=== PATIENT | female | born 1945 | race Caucasian/White ===

== ENCOUNTER 2016-08-21 08:08 | Inpatient (IN) ==
--- NOTE | 2016-08-21 08:27 | Emergency Department Note ---
Disposition Clinical Impression: Hypoxia, Near syncope Disposition: Admitted As Inpatient Condition: Good Referrals: NO,PCP [Non-Partnered Physician] - Forms: ED Satisfaction Letter Time of Disposition: 11:12 Dizziness HPI - General Chief Complaint: ED Dizziness Stated Complaint: Dizziness,QI Time Seen by Provider: 08/21/16 08:16 Source: patient, family Mode of arrival: ambulatory Limitations: no limitations Nursing Notes Reviewed: Yes Vital Signs Reviewed: Yes - History of Present Illness HPI Narrative: Patient presents to the ED with the chief complaint of dizziness. Patient is unsure when these symptoms started happening. However, she states that when she stands up or sits up from sitting quickly that she gets dizzy and feels like she is going to pass out. She does not have these symptoms at rest. He denies any headache, changes in vision or chest pain. She states that she gets short of breath at times but it is not associated with the dizziness. Does seem to have some exertional shortness of breath. Denies any other complaints at this time. States that she is healthy and has no medical problems but does have a history of hypertension, diabetes and heart disease. She is unsure if she is on any anticoagulation or not. at bedside and is unable to provide any more history either. She is not able to elaborate on what she is feeling, but she does state that it does not feel like the room is spinning and that she just feels very lightheaded. - Related Data Home Medications Medication Instructions Recorded Confirmed Cholecalciferol (Vitamin D3) 2,000 unit PO 03/23/15 03/09/16 [Vitamin D] Metoprolol [Lopressor] 25 mg PO DAILY 03/23/15 07/13/16 Aspirin [Adult Low Dose Aspirin EC] 81 mg PO DAILY 04/23/15 07/13/16 [place]-3/Dha/Epa/Fish Oil [[place] 3 1 each PO DAILY 01/07/16 07/13/16 500 Softgel] Diclofenac Sodium [Voltaren] 100 gm TP DAILY 07/13/16 07/13/16 Previous Rx's Medication Instructions Recorded Sulfamethoxazole/Trimeth DS 1 each PO BID #20 tablet 08/16/16 [Bactrim DS] cephALEXin [Keflex] 500 mg PO QID #28 capsule 08/18/16 Allergies Allergy/AdvReac Type Severity Reaction Status Date / Time No Known Allergies Allergy Verified 08/17/16 22:25 Constitutional: Denies: fever Eyes: Denies: vision change Cardiovascular: Denies: chest pain Respiratory: Reports: dyspnea Musculoskeletal: Denies: back pain Neurological: Reports: abnormal gait (at times) Past Medical History - Past Medical History Attestation: Yes The following information was validated with the patient. Source: old records reviewed Medical history: Reports: coronary artery disease, hyperlipidemia, hypertension , myocardial infarction, other Surgical history: Reports: non-contributory Psychiatric history: Reports: no psych history - Social History Smoking Status: Current every day smoker Smokeless Tobacco Status: No Alcohol use: Reports: none Drug use: Reports: none Physical Exam - General Limitations: no limitations General appearance: alert, in no apparent distress - Head Head exam: atraumatic, normocephalic, normal inspection - Eye Eye exam: Present: normal appearance, PERRL, EOMI - ENT ENT exam: normal exam, normal oropharynx, mucous membranes moist - Neck Neck exam: Present: normal inspection, full ROM, trachea midline - Chest Chest inspection: Present: normal inspection, symmetric chest wall rise - Respiratory Respiratory exam: Present: normal lung sounds bilaterally - Cardiovascular Cardiovascular exam: Present: regular rate, normal rhythm, normal heart sounds - Abdominal Exam Abdominal exam: Present: soft, Non-Tender. Absent: tenderness, distention, guarding, rebound, rigidity - Extremities Exam Extremities exam: Present: normal inspection, full ROM. Absent: tenderness, pedal edema - Neurological Exam Neurological exam: Present: alert, oriented X3, CN II-XII intact, normal gait - Psychiatric Psychiatric exam: Present: flat affect - Skin Skin exam: Present: warm, dry, intact, normal color Course Course Narrative: 71-year-old female presenting with dizziness and presyncopal type feeling when standing up or sitting up from lying down. No complaints of chest pain. Some intermittent complaints of shortness of breath. Overall, the patient is a very poor historian as is her family member present. We will check labs, EKG, chest x-ray. Neurological exam is nonfocal. Further disposition pending workup. However, patient likely may be able to go home. - Reevaluation(s) Reevaluation #1: CTA is negative. Patient 91%, resting on room air with any exertion drops below 90%. We will admit for hypoxia and near-syncope. Vital Signs Temperature 98.0 F 08/21/16 08:10 Pulse Rate 62 08/21/16 08:10 Respiratory Rate 17 08/21/16 08:10 Blood Pressure 162/67 08/21/16 08:10 O2 Sat by Pulse Oximetry 96 08/21/16 08:10 Temperature 98.0 F 08/21/16 08:10 Pulse Rate 64 08/21/16 09:06 Respiratory Rate 18 08/21/16 09:06 Blood Pressure 164/83 08/21/16 09:06 O2 Sat by Pulse Oximetry 91 08/21/16 09:06 Oxygen Delivery Oxygen Delivery Room Air Dizziness - Medical Records Medical records reviewed: Yes I reviewed the patient's medical records. - Lab Data Lab results reviewed: Yes I reviewed the patient's lab results. Result diagrams: 08/21/16 08:42 08/21/16 08:42 Lab Results 08/21/16 08/21/16 08/21/16 Range/Units 08:42 08:42 08:42 WBC 4.2 L (4.3-11.1) K/mcL RBC 4.61 (3.82-4.97) M/mcL Hgb 11.9 (11.5-15.4) g/dL Hct 37.6 (35.3-44.9) % MCV 81.6 L (83.0-100.0) fL MCH 25.8 L (28.0-33.3) pg MCHC 31.6 (31.6-35.5) g/dL RDW 14.6 H (11.5-14.5) % Plt Count 144 (140-400) K/mcL MPV 10.0 (9.4-12.4) fL Immature Gran % 0.2 (0-4) % Seg Neutrophils % 63.0 % Lymphocytes % 19.5 % Monocytes % 14.5 % Eosinophils % 2.6 % Basophils % 0.2 % Neutrophils # 2.7 (1.6-8.9) K/mcL Lymphocytes # 0.8 (0.6-4.6) K/mcL Monocytes # 0.6 (0.0-1.3) K/mcL Eosinophils # 0.1 (0.0-0.6) K/mcL Basophils # 0.0 (0.0-0.2) K/mcL Sodium 135 L (136-145) mEq/L Potassium 4.4 (3.5-4.5) mEq/L Chloride 103 (98-109) mEq/L Carbon Dioxide 24 (19-29) mEq/L BUN 25 H (7-20) mg/dL Creatinine 1.49 H (0.57-1.11) mg/dL Est GFR ( Amer) 42 L (> 60) Est GFR (Non-Af Amer) 34 L (> 60) BUN/Creatinine Ratio 17 (6-26) Glucose 116 H (70-99) mg/dL Calculated Osmolality 285 (280-300) Calcium 9.2 (8.6-10.8) mg/dL Troponin I 0.01 (0-0.03) ng/mL Urine Color (Yellow) Urine Clarity (Clear) Urine pH (5.0-8.0) pH Units Ur Specific [place] (1.010-1.025) Urine Protein (Neg-Trace) mg/dL Urine Glucose (UA) (Normal) mg/dL Urine Ketones (Negative) mg/dL Urine Blood (Negative) Urine Nitrite (Negative) Urine Bilirubin (Negative) Urine Urobilinogen (Normal) mg/dL Ur Leukocyte Esterase (Negative) Urine Microscopic RBC (0-3) per hpf Urine Microscopic WBC (0-3) per hpf Ur Squamous Epith Cells (None-Few) per lpf Urine Bacteria (None-Few) per hpf Hyaline Casts (None-Few) per lpf Ur Culture Indicated? (NO) 08/21/16 Range/Units 09:15 WBC (4.3-11.1) K/mcL RBC (3.82-4.97) M/mcL Hgb (11.5-15.4) g/dL Hct (35.3-44.9) % MCV (83.0-100.0) fL MCH (28.0-33.3) pg MCHC (31.6-35.5) g/dL RDW (11.5-14.5) % Plt Count (140-400) K/mcL MPV (9.4-12.4) fL Immature Gran % (0-4) % Seg Neutrophils % % Lymphocytes % % Monocytes % % Eosinophils % % Basophils % % Neutrophils # (1.6-8.9) K/mcL Lymphocytes # (0.6-4.6) K/mcL Monocytes # (0.0-1.3) K/mcL Eosinophils # (0.0-0.6) K/mcL Basophils # (0.0-0.2) K/mcL Sodium (136-145) mEq/L Potassium (3.5-4.5) mEq/L Chloride (98-109) mEq/L Carbon Dioxide (19-29) mEq/L BUN (7-20) mg/dL Creatinine (0.57-1.11) mg/dL Est GFR ( Amer) (> 60) Est GFR (Non-Af Amer) (> 60) BUN/Creatinine Ratio (6-26) Glucose (70-99) mg/dL Calculated Osmolality (280-300) Calcium (8.6-10.8) mg/dL Troponin I (0-0.03) ng/mL Urine Color Yellow (Yellow) Urine Clarity Cloudy A (Clear) Urine pH 6.5 (5.0-8.0) pH Units Ur Specific [place] 1.016 (1.010-1.025) Urine Protein Negative (Neg-Trace) mg/dL Urine Glucose (UA) Normal (Normal) mg/dL Urine Ketones Negative (Negative) mg/dL Urine Blood Trace H (Negative) Urine Nitrite Negative (Negative) Urine Bilirubin Negative (Negative) Urine Urobilinogen Normal (Normal) mg/dL Ur Leukocyte Esterase Negative (Negative) Urine Microscopic RBC 0-3 (0-3) per hpf Urine Microscopic WBC 0-3 (0-3) per hpf Ur Squamous Epith Cells Many H (None-Few) per lpf Urine Bacteria None Seen (None-Few) per hpf Hyaline Casts None Seen (None-Few) per lpf Ur Culture Indicated? NO (NO) - Radiology Data Radiology results reviewed: Yes I reviewed the patient's radiology results. - EKG Data EKG attestation: Yes I reviewed and interpreted this EKG. EKG results narrative: Sinus rhythm, rate 63, DC interval 225, first-degree AV block, QRS 91, QTc 395, left axis deviation, no acute changes from previous on 08/16/2016 [facility] - [facility] Situation: Demographics, MOA Background: Presenting Complaint, Relevant PMH, Meds, & Allergies Assessment: Vital Signs, Course and respsone to treatment, Exam Concerns, Patient/Family Expectation, Pertinant Lab Results, Outstanding Labs Recommendation: Recommendation based on pending studies, treatments, or consults Manish Report Given to: Dr. Amor Hammond Repor Time: 11:13
--- NOTE | 2016-08-21 08:47 | Emergency Department Note ---
Disposition Clinical Impression: Hypoxia, Near syncope Disposition: Admitted As Inpatient Condition: Good General Adult HPI - General Chief complaint: ED Dizziness Stated complaint: Dizziness,QI Time Seen by Provider: 08/21/16 08:16 Source: patient, family Mode of arrival: ambulatory Limitations: no limitations - History of Present Illness Pain Scale: 0 - Related Data Home Medications Medication Instructions Recorded Confirmed Cholecalciferol (Vitamin D3) 2,000 unit PO 03/23/15 03/09/16 [Vitamin D] Metoprolol [Lopressor] 25 mg PO DAILY 03/23/15 07/13/16 Aspirin [Adult Low Dose Aspirin EC] 81 mg PO DAILY 04/23/15 07/13/16 [place]-3/Dha/Epa/Fish Oil [[place] 3 1 each PO DAILY 01/07/16 07/13/16 500 Softgel] Diclofenac Sodium [Voltaren] 100 gm TP DAILY 07/13/16 07/13/16 Previous Rx's Medication Instructions Recorded Sulfamethoxazole/Trimeth DS 1 each PO BID #20 tablet 08/16/16 [Bactrim DS] cephALEXin [Keflex] 500 mg PO QID #28 capsule 08/18/16 Allergies Allergy/AdvReac Type Severity Reaction Status Date / Time No Known Allergies Allergy Verified 08/17/16 22:25 Constitutional: Denies: fever Eyes: Denies: vision change Cardiovascular: Denies: chest pain Respiratory: Reports: dyspnea Musculoskeletal: Denies: back pain Neurological: Reports: abnormal gait (at times) Past Medical History - Past Medical History Medical history: Reports: coronary artery disease, hyperlipidemia, hypertension , myocardial infarction, other Surgical history: Reports: non-contributory Psychiatric history: Reports: no psych history - Social History Smoking Status: Current every day smoker Smokeless Tobacco Status: No Alcohol use: Reports: none Drug use: Reports: none Physical Exam - General Limitations: no limitations General appearance: alert, in no apparent distress Course - Reevaluation(s) Reevaluation #1: I saw the patient with the resident, Dr. Kumar. Patient presents with complaint of lightheadedness. She says when she gets up she feels like she did not faint. She says her legs get weak and she starts to feel fuzzyheaded. Her has to help her get back to a chair. She denies a sensation of spinning or drunkenness or being off balance. She denies getting the symptoms while she is supine. She sometimes gets it when she sits up. Frequently gets it when she stands up although not every single time. One time she felt a little short of breath with it but otherwise has had no other symptoms with it. Recently was seen here for Eli[place]on the left leg at which time she had a Doppler that was negative. Feels like that illness is getting better. Examination is unremarkable with regards to the chief complaint. We will do a workup on the patient. Disposition will be based on diagnostic results and reevaluation. Time: 08:46 Vital Signs Temperature 98.0 F 08/21/16 08:10 Pulse Rate 62 08/21/16 08:10 Respiratory Rate 17 08/21/16 08:10 Blood Pressure 162/67 08/21/16 08:10 O2 Sat by Pulse Oximetry 96 08/21/16 08:10 Temperature 98.0 F 08/21/16 08:10 Pulse Rate 56 08/21/16 11:25 Respiratory Rate 20 08/21/16 11:25 Blood Pressure 164/83 08/21/16 09:06 O2 Sat by Pulse Oximetry 97 08/21/16 11:25 Oxygen Delivery Oxygen Delivery Nasal Cannula Medical Decision Making - Lab Data Result diagrams: 08/21/16 08:42 08/21/16 08:42 Lab Results 08/21/16 08/21/16 08/21/16 Range/Units 08:42 08:42 08:42 WBC 4.2 L (4.3-11.1) K/mcL RBC 4.61 (3.82-4.97) M/mcL Hgb 11.9 (11.5-15.4) g/dL Hct 37.6 (35.3-44.9) % MCV 81.6 L (83.0-100.0) fL MCH 25.8 L (28.0-33.3) pg MCHC 31.6 (31.6-35.5) g/dL RDW 14.6 H (11.5-14.5) % Plt Count 144 (140-400) K/mcL MPV 10.0 (9.4-12.4) fL Immature Gran % 0.2 (0-4) % Seg Neutrophils % 63.0 % Lymphocytes % 19.5 % Monocytes % 14.5 % Eosinophils % 2.6 % Basophils % 0.2 % Neutrophils # 2.7 (1.6-8.9) K/mcL Lymphocytes # 0.8 (0.6-4.6) K/mcL Monocytes # 0.6 (0.0-1.3) K/mcL Eosinophils # 0.1 (0.0-0.6) K/mcL Basophils # 0.0 (0.0-0.2) K/mcL Sodium 135 L (136-145) mEq/L Potassium 4.4 (3.5-4.5) mEq/L Chloride 103 (98-109) mEq/L Carbon Dioxide 24 (19-29) mEq/L BUN 25 H (7-20) mg/dL Creatinine 1.49 H (0.57-1.11) mg/dL Est GFR ( Amer) 42 L (> 60) Est GFR (Non-Af Amer) 34 L (> 60) BUN/Creatinine Ratio 17 (6-26) Glucose 116 H (70-99) mg/dL Calculated Osmolality 285 (280-300) Calcium 9.2 (8.6-10.8) mg/dL Troponin I 0.01 (0-0.03) ng/mL Urine Color (Yellow) Urine Clarity (Clear) Urine pH (5.0-8.0) pH Units Ur Specific [place] (1.010-1.025) Urine Protein (Neg-Trace) mg/dL Urine Glucose (UA) (Normal) mg/dL Urine Ketones (Negative) mg/dL Urine Blood (Negative) Urine Nitrite (Negative) Urine Bilirubin (Negative) Urine Urobilinogen (Normal) mg/dL Ur Leukocyte Esterase (Negative) Urine Microscopic RBC (0-3) per hpf Urine Microscopic WBC (0-3) per hpf Ur Squamous Epith Cells (None-Few) per lpf Urine Bacteria (None-Few) per hpf Hyaline Casts (None-Few) per lpf Ur Culture Indicated? (NO) 08/21/16 Range/Units 09:15 WBC (4.3-11.1) K/mcL RBC (3.82-4.97) M/mcL Hgb (11.5-15.4) g/dL Hct (35.3-44.9) % MCV (83.0-100.0) fL MCH (28.0-33.3) pg MCHC (31.6-35.5) g/dL RDW (11.5-14.5) % Plt Count (140-400) K/mcL MPV (9.4-12.4) fL Immature Gran % (0-4) % Seg Neutrophils % % Lymphocytes % % Monocytes % % Eosinophils % % Basophils % % Neutrophils # (1.6-8.9) K/mcL Lymphocytes # (0.6-4.6) K/mcL Monocytes # (0.0-1.3) K/mcL Eosinophils # (0.0-0.6) K/mcL Basophils # (0.0-0.2) K/mcL Sodium (136-145) mEq/L Potassium (3.5-4.5) mEq/L Chloride (98-109) mEq/L Carbon Dioxide (19-29) mEq/L BUN (7-20) mg/dL Creatinine (0.57-1.11) mg/dL Est GFR ( Amer) (> 60) Est GFR (Non-Af Amer) (> 60) BUN/Creatinine Ratio (6-26) Glucose (70-99) mg/dL Calculated Osmolality (280-300) Calcium (8.6-10.8) mg/dL Troponin I (0-0.03) ng/mL Urine Color Yellow (Yellow) Urine Clarity Cloudy A (Clear) Urine pH 6.5 (5.0-8.0) pH Units Ur Specific [place] 1.016 (1.010-1.025) Urine Protein Negative (Neg-Trace) mg/dL Urine Glucose (UA) Normal (Normal) mg/dL Urine Ketones Negative (Negative) mg/dL Urine Blood Trace H (Negative) Urine Nitrite Negative (Negative) Urine Bilirubin Negative (Negative) Urine Urobilinogen Normal (Normal) mg/dL Ur Leukocyte Esterase Negative (Negative) Urine Microscopic RBC 0-3 (0-3) per hpf Urine Microscopic WBC 0-3 (0-3) per hpf Ur Squamous Epith Cells Many H (None-Few) per lpf Urine Bacteria None Seen (None-Few) per hpf Hyaline Casts None Seen (None-Few) per lpf Ur Culture Indicated? NO (NO) Attestation Statement - Attestation Attestation: I, Dr. Mckeon, examined this patient is to face and my medical decision- making was reviewed with Dr. Kumar, Resident Physician. I agree with the documented findings, disposition and treatment plan as described except to the extent set forth below. Please see my progress notes for details.
[2016-08-21] MEDS: 0.9 % Sodium Chloride 1,000 ML IVC SCH ×2 (08:48→21:11)
[2016-08-21 08:52] LABS: Basophils % 0.2 %; Eosinophils # 0.1 K/mcL (0.0-0.6); Eosinophils % 2.6 %; Hematocrit 37.6 % (35.3-44.9); Hemoglobin 11.9 g/dL (11.5-15.4); Immature Granulocytes % 0.2 % (0-4); Lymphocytes # 0.8 K/mcL (0.6-4.6); Lymphocytes % 19.5 %; Mean Corpuscular HGB Conc 31.6 g/dL (31.6-35.5); Mean Corpuscular Hemoglobin 25.8 pg (28.0-33.3); Mean Corpuscular Volume 81.6 fL (83.0-100.0); Monocytes # 0.6 K/mcL (0.0-1.3); Monocytes % 14.5 %; Neutrophils # 2.7 K/mcL (1.6-8.9); Platelet Count 144 K/mcL (140-400); Red Blood Count 4.61 M/mcL (3.82-4.97); Red Cell Distribution Width 14.6 % (11.5-14.5)
[2016-08-21 09:03] LABS: Calcium 9.2 mg/dL (8.6-10.8); Potassium 4.4 mEq/L (3.5-4.5)
[2016-08-21] MEDS ORDERED: 0.9 % Sodium Chloride 1,000 ML IVC ONE (09:08)
[2016-08-21 09:25] LABS: Bilirubin,Urine Negative (Negative); Blood,Urine Trace (Negative); Clarity,Urine Cloudy (Clear); Color,Urine Yellow (Yellow); Glucose,Urine (UA) Normal (Normal); Ketones,Urine Negative (Negative); Leukocyte Esterase,Urine Negative (Negative); Nitrite,Urine Negative (Negative); PH,Urine 6.5 pH Units (5.0-8.0); Protein,Urine Negative (Neg-Trace); Specific Gravity,Urine 1.016 (1.010-1.025); Urobilinogen,Urine Normal (Normal)
[2016-08-21 09:27] LABS: Bacteria,Urine None Seen per hpf (None-Few); Hyaline Casts,Urine None Seen per lpf (None-Few); RBC,Urine 0-3 per hpf (0-3); Squamous Epithelial Cell,Urine Many per lpf (None-Few); WBC,Urine 0-3 per hpf (0-3)
[2016-08-21] MEDS ORDERED: Naloxone 0.4 MG/ML INJ IVP PRN (11:33)
[2016-08-21] MEDS ORDERED: *HR* Morphine 2 MG/ML SYRINGE IVP PRN (11:33)
[2016-08-21] MEDS ORDERED: Acetaminophen 325 MG TABLET PO PRN (11:33)
[2016-08-21] MEDS ORDERED: Ondansetron 4 MG/2 ML VIAL IVP PRN (11:33)
[2016-08-21] MEDS ORDERED: 0.9 % Sodium Chloride 1,000 ML IVC SCH (11:45)
[2016-08-21 12:09] LABS: Magnesium 1.8 mg/dL (1.6-2.6)
[2016-08-21] MEDS: Aspirin Enteric Coated 81 MG Tablet PO SCH (13:03)
[2016-08-21] MEDS: Ipratropium/Albuterol Neb 3 ML IH SCH ×3 (13:08→22:49)
[2016-08-21 13:14] LABS: INR 1.1; Prothrombin Time 11.6 Seconds (9.4-12.1)
--- NOTE | 2016-08-21 14:03 | Internal Med History&Physical ---
Date of Encounter: 08/21/16 Time of Encounter: 13:45 Assessment and Plan (1) Near syncope Current visit: Yes Status: Acute Dizziness and lightheadedness with near-syncope - possibly orthostatic hypotension or arrhythmia or vertigo and due to a acute kidney injury and dehydration Continue aspirin, statin, IV fluids Empiric IV Rocephin for cellulitis of left lower extremity EKG - sinus rhythm with no acute ST-T changes CT angios of chest - negative for PE and no pulmonary abnormality Echocardiogram - pending Orthostatic vitals - pending Carotid Doppler - pending Troponin - 0.01, we will trend Labs in a.m. (2) Hypoxia Current visit: Yes Status: Acute Transient hypoxia - unclear etiology - now improved Continue 2 L oxygen via nasal cannula DuoNeb breathing treatment every [address] angios of chest - negative for PE and no other acute cardiopulmonary process Troponin - 0.01 EKG - sinus rhythm with no acute ST-T changes ABG pending (3) Acute kidney injury Current visit: Yes Status: Acute Acute kidney injury, creatinine greater than baseline Probably due to poor by mouth intake, dehydration Continue fluids Labs in a.m. (4) Cellulitis of left lower extremity Current visit: No Status: Acute Cellulitis of left lower extremity - unknown duration Has been on Keflex and Bactrim - unknown duration Empiric IV Rocephin Recent venous Dopplers - negative for DVT (5) Hyperlipidemia Current visit: Yes Status: Chronic Patient started on simvastatin Qualifiers: Hyperlipidemia type: unspecified Qualified Code(s): E78.5 - Hyperlipidemia , unspecified (6) Hypertension Current visit: Yes Status: Chronic Essential hypertension, controlled, continue home medication, monitor Qualifiers: Hypertension type: essential hypertension Qualified Code(s): I10 - Essential (primary) hypertension (7) Morbid obesity with BMI of 40.0-44.9, adult Current visit: Yes Status: Chronic Morbid obesity with BMI greater than 40 with physical deconditioning Encouraged weight loss Physical therapy evaluation (8) DVT prophylaxis Current visit: Yes Status: Acute Continue heparin subcutaneous Internal Medicine - H&P: HPI Chief complaint: Dizziness, generalized weakness Admitted From: Emergency Dept History of present illness: Ms. Smith is a 71 year old female with past medical history hypertension, hyperlipidemia and mild coronary artery disease. She is not a good historian. No family members at bedside right now. Patient presents to the ED with complaints of dizziness and generalized weakness. Patient states symptoms started about 2-3 days ago. Dizziness is worse when she stands up and tries to walk. Patient states she feels short of breath at times but this quickly resolves. She denies chest pain. Denies palpitations, denies abdominal pain, and denies vomiting or diarrhea or fever. Patient's symptoms are vague. She states she feels better at present. No other associated symptoms. Initial evaluation in the ED revealed hypoxia with a O2 sat of 91% on room air which further dropped to 90% on exertion. Patient is being admitted for hypoxia and generalized weakness. Patient states she is being treated with 2 different antibiotics for left lower leg cellulitis by her primary care physician. Patient is not sure as to when the cellulitis started and is not sure as to how long she has been on antibiotics. Patient will be on IV Rocephin during her stay in the hospital. Orthostatic vitals and echocardiogram are pending. Carotid Doppler results are pending. Initial EKG in the ER shows sinus rhythm with left axis deviation with no acute ST-T changes. CT angios of the chest was also done is negative for PE. On examination patient is awake and alert. Not in any distress. As mentioned earlier she is a poor historian. No family members at bedside. She has been explained about her condition and plan of care. She understood and agreed. No unanswered questions. CODE STATUS full code. Past Med Surg Social Fam HX - Past Medical History Medical history: coronary artery disease, hyperlipidemia, hypertension, myocardial infarction, other Psychiatric history: no psych history - Past Surgical History Surgical History: non-contributory - Social History Smoking Status: Never smoker Smokeless Tobacco Status: No Alcohol use: none Drug use: none - Family History Father Hx Family Cardiac Disorders: Yes (Pacer) Mother Hx Family Cardiac Disorders: Yes Brother Hx Family Cardiac Disorders: Yes (MA X5) Internal Medicine - H&P: Meds Cholecalciferol (Vitamin D3) [Vitamin D] 2,000 unit PO DAILY 03/23/15 [History] Aspirin [Adult Low Dose Aspirin EC] 81 mg PO DAILY 04/23/15 [History] [place]-3/Dha/Epa/Fish Oil [[place] 3 500 Softgel] 1 cap PO DAILY 01/07/16 [History] Sulfamethoxazole/Trimeth DS [Bactrim DS] 1 each PO BID #20 tablet 08/16/16 [Rx] cephALEXin [Keflex] 500 mg PO QID #28 capsule 08/18/16 [Rx] Furosemide [Lasix] 20 mg PO DAILY 08/21/16 [History] Metoprolol XL (24 HR) Succ [Toprol XL] 25 mg PO DAILY 08/21/16 [History] Triamcinolone Acet 0.1% CRM [Kenalog] 1 appl TP BID 08/21/16 [History] Allergies No Known Allergies Allergy (Verified 08/17/16 22:25) All Systems PM: A 10-system review of systems was performed and is negative for pertinent findings except as documented above in the HPI. - Constitutional Constitutional: fatigue, weakness, no fever(s) - EENT Eyes: no blurry vision - Cardiovascular Cardiovascular ROS IM: dyspnea, dyspnea on exertion, lightheadedness, no chest pain, no diaphoresis, no orthopnea, no syncope - Respiratory Respiratory: dyspnea, dyspnea on exertion, no cough, no wheezing, no chest congestion - Gastrointestinal Gastrointestinal: no abdominal pain, no cramping, no diarrhea, no melena, no nausea, no vomiting - Musculoskeletal Musculoskeletal ROS IM: no arthralgias - Neurological Neurological ROS: no abnormal gait, no abnormal speech, no dizziness, no loss of vision, no numbness, no tingling - Constitutional Vitals: Temp Pulse Resp BP Pulse Ox 98.3 F 58 18 178/82 98 08/21/16 12:40 08/21/16 12:40 08/21/16 12:40 08/21/16 12:40 08/21/16 12:40 General appearance: Present: A&O X 3, morbidly obese, pleasant, no acute distress, answers questions appropriately - Head Head exam: Present: atraumatic - Eye Eye exam: Present: EOMI - ENT ENT exam: Present: mucous membranes moist - Neck Neck exam general surgery: Present: supple - Respiratory Respiratory exam: Present: CTAB. Absent: rales, rhonchi, wheezes - Cardiovascular Cardiovascular exam: Present: RRR, +S1, +S2 - GI/Abdominal GI/Abdominal exam: Present: soft, no peritoneal signs. Absent: distended, firm , guarding, rebound, rigid, tenderness - Extremities Exam Extremities exam: Present: pedal edema (Mild bilateral), tenderness (Mild left lower leg), radial pulses palpable and symetrical. Absent: cyanotic Additional comments: Erythema and cellulitis left lower extremity - Neurological Exam Neurological exam: Present: alert, oriented X3, no focal deficits Internal Med - H&P Results - Labs CBC & Chem 7: 08/21/16 08:42 08/21/16 08:42
[2016-08-21] MEDS: *HR* Heparin 5,000 UNIT/ML VIAL SQ SCH (14:47)
--- NOTE | 2016-08-21 17:51 | Electrocardiograph Report ---
[place] [id number] Test Date: 2016-08-21 Pat Name: Blaire Smith Department: 102 Room: 3B Gender: F Funds Transfer Clerk: Msc : 1945 Requested By: Evans Kumar Order Number: [id number] Reading MD: Inocencia Haynes Measurements Intervals [place] Rate: 63 P: 50 UT: 225 QRS: -12 QRSD: 91 T: 8 QT: 388 QTc: 395 Interpretive Statements SINUS RHYTHM WITH FIRST DEGREE AV BLOCK POSSIBLE ANTERIOR MYOCARDIAL INFARCTION [30 ms Q WAVE IN V3/V4, OR R < 0.2 mV IN V4], PROBABLY OLD Electronically Signed On 08-21-2016 17:49:39 EDT by Inocencia Haynes
[2016-08-21] MEDS: Famotidine 20 MG TABLET PO SCH (21:10)
[2016-08-21] MEDS: Triamcinolone Acet 0.1% CRM 15 GM TUBE TP SCH (21:10)
[2016-08-22] MEDS: *HR* Heparin 5,000 UNIT/ML VIAL SQ SCH ×3 (00:31→16:23)
[2016-08-22] MEDS: Ipratropium/Albuterol Neb 3 ML IH SCH ×4 (03:23→21:00)
[2016-08-22 04:36] LABS: Hematocrit 38.1 % (35.3-44.9); Lymphocytes # 1.5 K/mcL (0.6-4.6); Mean Corpuscular HGB Conc 31.5 g/dL (31.6-35.5); Mean Corpuscular Hemoglobin 26.5 pg (28.0-33.3); Mean Corpuscular Volume 84.1 fL (83.0-100.0); Mean Platelet Volume 10.3 fL (9.4-12.4); Platelet Count 111 K/mcL (140-400); Red Blood Count 4.53 M/mcL (3.82-4.97); Red Cell Distribution Width 14.6 % (11.5-14.5)
[2016-08-22 04:59] LABS: Calcium 8.4 mg/dL (8.6-10.8); Potassium 4.1 mEq/L (3.5-4.5)
[2016-08-22 05:08] LABS: Platelet Estimate Decreased (Normal); Reactive Lymphocytes Present (Not Present)
[2016-08-22 05:14] LABS: Basophils % 0.3 %; Eosinophils % 2.9 %; Immature Granulocytes % 0.8 % (0-4); Lymphocytes % 38.9 %; Monocytes % 13.3 %; Segmented Neutrophils % 43.8 %
[2016-08-22 05:15] LABS: Monocytes # 0.5 K/mcL (0.0-1.3); Neutrophils # 1.7 K/mcL (1.6-8.9)
[2016-08-22 05:16] LABS: Eosinophils # 0.1 K/mcL (0.0-0.6)
[2016-08-22] MEDS: 0.9 % Sodium Chloride 1,000 ML IVC SCH ×2 (06:20→16:22)
[2016-08-22] MEDS: Aspirin Enteric Coated 81 MG Tablet PO SCH (08:58)
[2016-08-22] MEDS: Furosemide 20 MG TABLET PO SCH (08:58)
[2016-08-22] MEDS: Triamcinolone Acet 0.1% CRM 15 GM TUBE TP SCH ×2 (08:59→20:01)
[2016-08-22] MEDS: Famotidine 20 MG TABLET PO SCH ×2 (08:59→20:01)
[2016-08-22] MEDS: Cholecalciferol (D-3) 1,000 UNIT TABLET PO SCH (08:59)
[2016-08-22] MEDS ORDERED: Metoprolol XL (24 HR) Succ 25 MG TAB.ER.24H PO SCH (09:00)
[2016-08-22] MEDS ORDERED: OMEGA PO SCH (09:00)
[2016-08-22] MEDS ORDERED: DHA PO SCH (09:00)
[2016-08-22] MEDS ORDERED: FISH OIL PO SCH (09:00)
[2016-08-22] MEDS ORDERED: EPA PO SCH (09:00)
--- NOTE | 2016-08-22 11:51 | Carotid Imaging Report ---
Carotid Duplex Patient Name:Blaire Smith Order Number:[id number] Procedure Date:08/21/2016 Date:4Age:71 yrs Gender:Female Rt.BP:178 / 82 mmHgHeart Rate: Location:[facility] Room #: [facility] [place] [employer] Operator:Eugneie Villarreal ADIEL Referring MD:Antonio Shen MD instrument mechanic:Heladio Morrissey MD Reading MD:Lyndon Ngo MD Primary Indications:Dizziness, Syncope Risk Factors Yes/No Hypertension Yes Hypercholesterolemia Yes Hx of CAD/PTCA Yes Impressions: The bilateral carotid arteries have minimal plaque throughout. Findings Carotid Duplex: Right: The right proximal common carotid artery has a PSV of 72 cm/s and a EDV of 11 cm/s. The right mid common carotid artery has a PSV of 52 cm/s and a EDV of 11 cm/s. The right distal common carotid artery has a PSV of 67 cm/s and a EDV of 11 cm/s. There is nonstenotic plaque in the right bifurcation with a PSV of 50 cm/s and a EDV of 14 cm/s. The right proximal internal carotid artery has a PSV of 94 cm/s and a EDV of 19 cm/s. The right mid internal carotid artery has a PSV of 94 cm/s and a EDV of 18 cm/s. The right distal internal carotid artery has a PSV of 109 cm/s and a EDV of 15 cm/s. The right eca has a PSV of 95 cm/s and a EDV of 8 cm/s. The right vertebral artery has a PSV of 95 cm/s and a EDV of 18 cm/s. There is antegrade spectral Doppler flow patterns. Left: The left proximal common carotid artery has a PSV of 78 cm/s and a EDV of 11 cm/s. The left mid common carotid artery has a PSV of 70 cm/s and a EDV of 10 cm/s. The left distal common carotid artery has a PSV of 66 cm/s and a EDV of 14 cm/s. There is nonstenotic plaque in the left bifurcation with a PSV of 66 cm/s and a EDV of 13 cm/s. The left proximal internal carotid artery has a PSV of 96 cm/s and a EDV of 18 cm/s. The left mid internal carotid artery has a PSV of 93 cm/s and a EDV of 20 cm/s. The left distal internal carotid artery has a PSV of 96 cm/s and a EDV of 18 cm/s. The left eca has a PSV of 87 cm/s and a EDV of 16 cm/s. The left vertebral artery has a PSV of 115 cm/s and a EDV of 22 cm/s. There is antegrade spectral Doppler flow patterns. Prior Study: No prior study available for comparison. Carotid Results Right PSV EDV Assessment Proximal CCA 72 11 Mid CCA 52 11 Distal CCA 67 11 Bifurcation 50 14 Non Stenotic Plaque Proximal ICA 94 19 Mid ICA 94 18 Distal ICA 109 15 ECA 95 8 Vertebral Artery 95 18 Antegrade Flow Left PSV EDV Assessment Proximal CCA 78 11 Mid CCA 70 10 Distal CCA 66 14 Bifurcation 66 13 Non Stenotic Plaque Proximal ICA 96 18 Mid ICA 93 20 Distal ICA 96 18 ECA 87 16 Vertebral Artery 115 22 Antegrade Flow Ratio's Right ICA/CCA Ratio: 2.09 ICA/CCA Values: 109/52 Left ICA/CCA Ratio: 1.37 ICA/CCA Values: 96/70 Updated by Lyndon Ngo MD on 08/22/2016 11:46:54 AM electronically signed on 08/22/2016 11:47:10 AM with status of Final
--- NOTE | 2016-08-22 17:34 | Internal Med Progress Note ---
<Lyndon Hurley - Last Filed: 08/22/16 17:21> Date of Encounter: 08/22/16 Time of Encounter: 17:21 - Assessment and plan (1) Near syncope Current Visit: Yes Status: Acute Assessment and plan: Etiology is not clear at this time. CT of the head reveals no acute intracranial abnormalities. Transthoracic echocardiogram reveals normal ejection fraction no major valvular abnormalities and no pulmonary hypertension. Ultrasound of the carotids shows nonstenotic plaques bilaterally. Orthostatic vital signs were checked and within normal limits. CTA shows no PE or acute cardiopulmonary processes. Denies dizziness, chest pain, focal neurologic symptoms. May be secondary to her physical deconditioning. May consider holter monitor upon discharge is etiology still unclear. We will also check a TSH and CK. (2) Cellulitis of left lower extremity Current Visit: No Status: Acute Assessment and plan: continue rocephin (3) Dyspnea Current Visit: Yes Status: Acute Assessment and plan: etiology unclear at this time. Possibly viral as she has reactive lymphocytes. Possibible OHS? check nocturnal O2. If continues may need further cardiac testing. (4) Hypertension Current Visit: Yes Status: Chronic Qualifiers: Hypertension type: essential hypertension Qualified Code(s): I10 - Essential (primary) hypertension (5) Morbid obesity with BMI of 40.0-44.9, adult Current Visit: Yes Status: Chronic Assessment and plan: advise weight loss (6) Acute kidney injury Current Visit: Yes Status: Acute (7) Physical deconditioning Current Visit: Yes Status: Acute Assessment and plan: PT/OT (8) DVT prophylaxis Current Visit: Yes Status: Acute Assessment and plan: SQ heparin.SQ heparin - Subjective Interval history: Today the patient complains of generalized weakness. Off note she is a poor historians. When I ask her about specifics about her symptoms she often will ask her . It dose seem like she has been having presyncope with standing. She denies any focal motor defecits, facial droop, slurred speech, visual changes, chest pain or palpitations. Se dose admit to some exertional dyspnea.She states the onset of her symptoms have been approximately 3 weeks. She denies any rash or myalgias. She denies any dizziness. She denies N/V/D. denies poor oral intake. She dose admit to recent history of cellulitis of the leg that she has beentaking antibiotics for. She states her leg has improved and near normal. She has no further complaints or concerns at this time. Her is present and verifies this information. - Constitutional Vitals: Temp Pulse Resp BP Pulse Ox 98.5 F 65 16 147/76 93 08/22/16 15:00 08/22/16 15:00 08/22/16 15:03 08/22/16 15:00 08/22/16 15:03 General appearance: Present: A&O X 3, morbidly obese, pleasant, no acute distress Exam: Gen.: This is a well-developed well-nourished 71-year-old female who is alert and orientated to person place and sutures. However she is a poor story and and often defers to her for questions. Alignment appears to be comfortable no acute distress at this time. Heart: Regular rate and rhythm without murmurs rubs or gallops. HEENT: Head is normocephalic and atraumatic. Pupils equally round react to light and accommodation. Moist mucous membranes. Tongue and trachea midline. Neck supple without masses thyromegaly. Heart: Regular rate and rhythm without murmurs rubs or gallops. Lungs: Clear to auscultation bilaterally. Abdomen: Obese, soft, nondistended, nontender to palpation. Bowel sounds are positive in all quadrants. Musculoskeletal: Grossly rephrase no gross deformity noted. Extremities: There is no clubbing or cyanosis. She does have some mild pedal edema bilaterally. Also has mild erythema of the lower extremity. Usually resolving cellulitis. Internal Medicine: Result - Labs CBC & Chem 7: 08/22/16 04:04 08/22/16 04:04 Labs: Short CBC 08/22/16 Range/Units 04:04 WBC 3.8 L (4.3-11.1) K/mcL Hgb 12.0 (11.5-15.4) g/dL Hct 38.1 (35.3-44.9) % Plt Count 111 L (140-400) K/mcL Neutrophils # 1.7 (1.6-8.9) K/mcL BMP 08/22/16 04:04 Sodium 137 Potassium 4.1 Chloride 108 Carbon Dioxide 23 BUN 20 Creatinine 1.34 H Glucose 111 H Calcium 8.4 L Cardiac Enzymes 08/21/16 08/22/16 Range/Units 21:19 04:04 Troponin I 0.01 0.01 (0-0.03) ng/mL - ABG Interpretation ABG results: PT/INR, D-dimer PT 11.6 Seconds (9.4-12.1) 08/21/16 12:32 Consult Discharge Plan - Plan Referrals: Heladio Morrissey MD [Primary Care Provider] - <AnamikaEbenezer - Last Filed: 08/22/16 19:07> Date of Encounter: 08/22/16 - Constitutional Vitals: Temp Pulse Resp BP Pulse Ox 98.5 F 65 16 147/76 93 08/22/16 15:00 08/22/16 15:00 08/22/16 15:03 08/22/16 15:00 08/22/16 15:03 Internal Medicine: Result - Labs CBC & Chem 7: 08/22/16 04:04 08/22/16 04:04 Labs: Short CBC 08/22/16 Range/Units 04:04 WBC 3.8 L (4.3-11.1) K/mcL Hgb 12.0 (11.5-15.4) g/dL Hct 38.1 (35.3-44.9) % Plt Count 111 L (140-400) K/mcL Neutrophils # 1.7 (1.6-8.9) K/mcL BMP 08/22/16 04:04 Sodium 137 Potassium 4.1 Chloride 108 Carbon Dioxide 23 BUN 20 Creatinine 1.34 H Glucose 111 H Calcium 8.4 L Cardiac Enzymes 08/21/16 08/22/16 Range/Units 21:19 04:04 Troponin I 0.01 0.01 (0-0.03) ng/mL - ABG Interpretation ABG results: PT/INR, D-dimer PT 11.6 Seconds (9.4-12.1) 08/21/16 12:32 - Attending Attestation I examined this patient and my medical decision-making was reviewed with the Resident Physician, Dr. Hurley. I agree with the documented findings, disposition and treatment plan as described. exam reveals left lower leg erythema and warmth co Consistent with cellulitis. Plan: We will continue treatment with ceft Ceftriaxone. We will check nighttime oxygen/BiPAP qualification. High index of suspicion for DANIELA.
[2016-08-23 00:43] LABS: ABG HCO3 25.3 mEQ/L (21-27); ABG Oxygen Saturation 81 % (95-98); ABG PCO2 34 mmHg (35-45); ABG PH 7.48 pH Units (7.32-7.45); ABG TCO2 26.3 mEq/L (20-26)
[2016-08-23 00:45] LABS: ABG PO2 41 mmHg (85-104)
[2016-08-23] MEDS: Ipratropium/Albuterol Neb 3 ML IH SCH ×4 (03:53→21:42)
[2016-08-23] MEDS: Metoprolol XL (24 HR) Succ 25 MG TAB.ER.24H PO SCH (04:25)
[2016-08-23 05:23] LABS: Basophils % 0.2 %; Eosinophils % 0.3 %; Hemoglobin 10.5 g/dL (11.5-15.4); Immature Granulocytes % 0.3 % (0-4); Lymphocytes % 30.9 %; Mean Corpuscular HGB Conc 30.9 g/dL (31.6-35.5); Mean Corpuscular Hemoglobin 25.5 pg (28.0-33.3); Mean Corpuscular Volume 82.5 fL (83.0-100.0); Mean Platelet Volume 10.6 fL (9.4-12.4); Monocytes # 0.8 K/mcL (0.0-1.3); Monocytes % 11.7 %; Platelet Count 126 K/mcL (140-400); Red Blood Count 4.12 M/mcL (3.82-4.97); Red Cell Distribution Width 14.5 % (11.5-14.5); Segmented Neutrophils % 56.6 %
[2016-08-23 05:29] LABS: Neutrophils # 3.7 K/mcL (1.6-8.9)
[2016-08-23 05:42] LABS: Calcium 8.1 mg/dL (8.6-10.8); Magnesium 1.8 mg/dL (1.6-2.6); Potassium 3.7 mEq/L (3.5-4.5)
[2016-08-23 06:03] LABS: Thyroid Stimulating Hormone 0.31 mcIU/mL (0.350-4.840)
[2016-08-23] MEDS: *HR* Heparin 5,000 UNIT/ML VIAL SQ SCH ×3 (08:35→15:29)
[2016-08-23] MEDS: Famotidine 20 MG TABLET PO SCH ×2 (08:43→21:16)
[2016-08-23] MEDS: Triamcinolone Acet 0.1% CRM 15 GM TUBE TP SCH ×2 (08:43→21:15)
[2016-08-23] MEDS: Furosemide 20 MG TABLET PO SCH (08:43)
[2016-08-23] MEDS: Cholecalciferol (D-3) 1,000 UNIT TABLET PO SCH (08:43)
[2016-08-23] MEDS: Aspirin Enteric Coated 81 MG Tablet PO SCH (08:43)
[2016-08-23 08:57] LABS: Triiodothyronine (T3) Free 2.02 pg/mL (1.71-3.71)
--- NOTE | 2016-08-23 15:02 | Internal Med Progress Note ---
Addendum entered and electronically signed by Lyndon Hurley DO 15:22: In addition to the below assesment and plan the patient has anemia as well. Likely this is from IV fluids. However she dose have a low MCV. I will check hematinics with the AM labs. Original Note: <Lyndon Hurley - Last Filed: 08/23/16 15:21> Date of Encounter: 08/23/16 Time of Encounter: 15:02 - Assessment and plan (1) Near syncope Current Visit: Yes Status: Acute Assessment and plan: Etiology is not clear at this time. CT of the head reveals no acute intracranial abnormalities. Transthoracic echocardiogram reveals normal ejection fraction no major valvular abnormalities and no pulmonary hypertension. Ultrasound of the carotids shows nonstenotic plaques bilaterally. Orthostatic vital signs were checked and within normal limits. CTA shows no PE or acute cardiopulmonary processes. Denies dizziness, chest pain, focal neurologic symptoms. May be secondary to her physical deconditioning. I think likely her cellulitis/ infectious process is contributing as well. additionally she is very hypoxemic on overnight ABG. Likely has DANIELA/ OHS. May consider holter monitor upon discharge is etiology still unclear. (2) Cellulitis of left lower extremity Current Visit: No Status: Acute Assessment and plan: continue rocephin improving. this dose overly some hardware from prior orthopedic surgery. Will check ESR and CRP. If markedly elevated would consider further imaging. (3) Dyspnea Current Visit: Yes Status: Acute Assessment and plan: etiology unclear at this time. Possibible OHS? deconditioning. Has nocturnal hypoxemia. Echo dose not reveal any pulmonary hypertension. . If continues may need further cardiac testing. Qualifiers: Qualified Code(s): R06.00 - Dyspnea, unspecified (4) Hypertension Current Visit: Yes Status: Chronic Assessment and plan: accelerated. I have added PRN Hydralazine. Qualifiers: Hypertension type: essential hypertension Qualified Code(s): I10 - Essential (primary) hypertension (5) Morbid obesity with BMI of 40.0-44.9, adult Current Visit: Yes Status: Chronic Assessment and plan: advise weight loss (6) Acute kidney injury Current Visit: Yes Status: Acute Assessment and plan: improving. avoid nephrotoxins. (7) Physical deconditioning Current Visit: Yes Status: Acute Assessment and plan: PT/OT (8) DANIELA (obstructive sleep apnea) Current Visit: Yes Status: Suspected Assessment and plan: strongly suspected. Will need nocturnal O2. Will need Polysomnography as outpatient. (9) Hypoxemia Current Visit: Yes Status: Acute Assessment and plan: O2 at night or while sleeping. 08/23/16 00:28 ABG pH 7.48 H ABG pCO2 34 L ABG pO2 41 L* ABG HCO3 25.3 ABG Total CO2 26.3 H ABG O2 Saturation 81 L ABG Base Excess 2.0 (10) Fever Current Visit: Yes Status: Acute Assessment and plan: Tmax of 100.1 Likely from cellulitis. Clinically appears to be improving. Dose not meet SIRs criteria at this time. qSOFA score 0 Plan: Continue Rocephin. We will also draw blood cultures. Vital Signs Temp Pulse Resp BP Pulse Ox 08/23/16 11:04 15 93 08/23/16 08:30 93 08/23/16 07:37 99.7 F H 67 15 171/65 93 08/23/16 03:53 16 90 08/23/16 03:41 100.1 F H 70 18 189/69 94 08/22/16 23:28 99.4 F 78 18 140/72 87 08/22/16 23:08 96 08/22/16 21:00 17 96 08/22/16 19:39 99.7 F H 65 18 183/79 99 Intake and Output 08/22/16 08/23/16 08/23/16 23:59 07:59 15:59 Intake Total 1633 / 1633 100 / 100 360 / 360 Balance 1633 / 1633 100 / 100 360 / 360 Intake: IV Fluids 1033 / 1033 100 / 100 0.9 % Sodium Chloride 1, 1033 / 1033 000 ML @ 100 mls/hr IVC . Q10H DEEPAK Rx#:[id number] Rocephin 1,000 MG In 100 / 100 Dextrose 5% (Minibag+) 100 ML 100 ML @ 200 mls/ hr IVPB Q24H DEEPAK Rx#: [id number] Oral 600 / 600 360 / 360 Other: Meal Dinner Lunch Percent of Meal Consumed 90% 50% # Voids 3 3 Weight 129.274 kg Patient Weight 08/23/16 23:59 Weight 129.274 kg Qualifiers: Qualified Code(s): R50.9 - Fever, unspecified (11) DVT prophylaxis Current Visit: Yes Status: Acute Assessment and plan: SQ heparin. - Subjective Interval history: No major events overnight. PAtient states that she continues to feel week and that she will fall or pass out when she attempts to ambulate. She states that seh feels very fatigued. Admits to malaise. Denies night sweats or recent weight change. She has no further complaints or concerns at this time. - Constitutional Vitals: Temp Pulse Resp BP Pulse Ox 99.7 F H 67 15 171/65 93 08/23/16 07:37 08/23/16 07:37 08/23/16 11:04 08/23/16 07:37 08/23/16 11:04 Exam: Gen.: This is a well-developed well-nourished 71-year-old female who is somewhat somnolent when I entered the room however she does wake easily and feels commands and is alert for the rest of the exam. She is orientated to person place time and situation. She is in no acute distress at this time. HEENT: The head is normocephalic and atraumatic. The pupils are equally round react to light and accommodation. There is a normal external appearance of ears and nose and eyes. Dentition intact is a Mallampati score 3. Tongue and trachea midline. Neck supple without mass or thyromegaly. No cervical submandibular or supraclavicular lymphadenopathy palpable on exam. Heart: Regular rate and rhythm without murmurs rubs or gallops. No JVD. Capillary refill. Lungs: Normal effort originally clear to auscultation bilaterally. Musculoskeletal: Grossly normal for age no respiratory noted. Extremities: His clubbing, cyanosis or edema. The left lower extremity has less erythema than yesterday appears to be resolving cellulitis. Internal Medicine: Result - Labs CBC & Chem 7: 08/23/16 04:48 08/23/16 04:48 Labs: Short CBC 08/23/16 Range/Units 04:48 WBC 6.6 D (4.3-11.1) K/mcL Hgb 10.5 L D (11.5-15.4) g/dL Hct 34.0 L (35.3-44.9) % Plt Count 126 L (140-400) K/mcL Neutrophils # 3.7 (1.6-8.9) K/mcL BMP 08/23/16 04:48 Sodium 138 Potassium 3.7 Chloride 105 Carbon Dioxide 27 BUN 16 Creatinine 1.16 H Glucose 154 H Calcium 8.1 L - ABG Interpretation ABG results: ABG ABG pH 7.48 pH Units (7.32-7.45) H 08/23/16 00:28 ABG pCO2 34 mmHg (35-45) L 08/23/16 00:28 ABG pO2 41 mmHg (85-104) L* 08/23/16 00:28 ABG O2 Saturation 81 % (95-98) L 08/23/16 00:28 PT/INR, D-dimer PT 11.6 Seconds (9.4-12.1) 08/21/16 12:32 Consult Discharge Plan - Plan Referrals: Heladio Morrissey MD [Primary Care Provider] - <Ebenezer Willson - Last Filed: 08/23/16 19:25> Date of Encounter: 08/23/16 - Constitutional Vitals: Temp Pulse Resp BP Pulse Ox 98.2 F 71 24 117/64 93 08/23/16 18:56 08/23/16 18:56 08/23/16 18:56 08/23/16 18:56 08/23/16 18:56 Internal Medicine: Result - Labs CBC & Chem 7: 08/23/16 04:48 08/23/16 04:48 Labs: Short CBC 08/23/16 Range/Units 04:48 WBC 6.6 D (4.3-11.1) K/mcL Hgb 10.5 L D (11.5-15.4) g/dL Hct 34.0 L (35.3-44.9) % Plt Count 126 L (140-400) K/mcL Neutrophils # 3.7 (1.6-8.9) K/mcL BMP 08/23/16 04:48 Sodium 138 Potassium 3.7 Chloride 105 Carbon Dioxide 27 BUN 16 Creatinine 1.16 H Glucose 154 H Calcium 8.1 L Liver Function 08/23/16 Range/Units 15:42 Total Bilirubin 0.6 (0.2-1.2) mg/dL Direct Bilirubin 0.3 (0.0-0.5) mg/dL AST 20 (5-34) Units/L ALT 15 (0-55) Units/L Alkaline Phosphatase 66 (38-126) Units/L Albumin 3.4 L (3.5-5.0) g/dL - ABG Interpretation ABG results: ABG ABG pH 7.48 pH Units (7.32-7.45) H 08/23/16 00:28 ABG pCO2 34 mmHg (35-45) L 08/23/16 00:28 ABG pO2 41 mmHg (85-104) L* 08/23/16 00:28 ABG O2 Saturation 81 % (95-98) L 08/23/16 00:28 PT/INR, D-dimer PT 11.6 Seconds (9.4-12.1) 08/21/16 12:32 - Attending Attestation I examined this patient and my medical decision-making was reviewed with the Resident Physician, Dr. Hurley. I agree with the documented findings, disposition and treatment plan as described except to the extent set forth below. a sleep study could not be conducted to 2 hypoxia of 85% on room air while asleep. ABG shows profound hypoxemia. We will treat her with CPAP while in the hospital and prescribenighttime home oxygen.
[2016-08-23 16:10] LABS: Albumin 3.4 g/dL (3.5-5.0); Albumin/Globulin Ratio 1.1 (1.1-2.2); Bilirubin,Direct 0.3 mg/dL (0.0-0.5); Bilirubin,Indirect 0.3 mg/dL (0.0-1.2); Bilirubin,Total 0.6 mg/dL (0.2-1.2); Globulin 3.1 g/dL (2.4-3.5); Total Protein 6.5 g/dL (6.0-8.3)
[2016-08-23 21:51] LABS: ABG Base Excess 4.2 mEq/L (-2.0 to 3.0); ABG HCO3 28.4 mEQ/L (21-27); ABG Oxygen Saturation 97 % (95-98); ABG PCO2 40 mmHg (35-45); ABG PH 7.46 pH Units (7.32-7.45); ABG PO2 85 mmHg (85-104); ABG TCO2 29.6 mEq/L (20-26); Blood Gas FiO2 28 %; Blood Gas Liter Flow 2 L/MIN
[2016-08-24] MEDS: *HR* Heparin 5,000 UNIT/ML VIAL SQ SCH ×4 (00:12→23:30)
[2016-08-24] MEDS: Ipratropium/Albuterol Neb 3 ML IH SCH ×4 (03:45→22:16)
[2016-08-24 04:49] LABS: Basophils % 0.3 %; Eosinophils # 0.1 K/mcL (0.0-0.6); Eosinophils % 0.7 %; Hematocrit 33.8 % (35.3-44.9); Hemoglobin 10.5 g/dL (11.5-15.4); Immature Granulocytes % 0.3 % (0-4); Immature Reticulocyte % 12.5 % (11.0-38.0); Lymphocytes # 1.9 K/mcL (0.6-4.6); Lymphocytes % 28.8 %; Mean Corpuscular HGB Conc 31.1 g/dL (31.6-35.5); Mean Corpuscular Hemoglobin 25.8 pg (28.0-33.3); Mean Platelet Volume 10.9 fL (9.4-12.4); Monocytes # 0.7 K/mcL (0.0-1.3); Monocytes % 9.7 %; Platelet Count 117 K/mcL (140-400); Red Blood Count 4.07 M/mcL (3.82-4.97); Red Cell Distribution Width 14.6 % (11.5-14.5); Retculocyte # 0.04 M/mcL (0.05-0.10); Reticulocyte % 0.9 % (1.6-2.8); Segmented Neutrophils % 60.2 %
[2016-08-24 05:12] LABS: % Iron Saturation 9 % (15-50); BUN/Creatinine Ratio 14 (6-26); Blood Urea Nitrogen 12 mg/dL (7-20); Calcium 8.4 mg/dL (8.6-10.8); Carbon Dioxide 24 mEq/L (19-29); Chloride 107 mEq/L (98-109); Glucose 118 mg/dL (70-99); Iron 19 mcg/dL (50-170); Lactate Dehydrogenase 301 Units/L (159-327); Osmolality,Calculated 289 (280-300); Potassium 3.6 mEq/L (3.5-4.5); Sodium 139 mEq/L (136-145); Transferrin 156 mg/dL (180-382); eGFR For African Americans > 60 (> 60); eGFR For Non-African Americans > 60 (> 60)
[2016-08-24 05:21] LABS: Ferritin 303 ng/ml (5-204)
[2016-08-24 06:47] LABS: Folate 12.1 ng/mL (7.0-31.4)
[2016-08-24] MEDS: Furosemide 20 MG TABLET PO SCH (08:25)
[2016-08-24] MEDS: Metoprolol XL (24 HR) Succ 25 MG TAB.ER.24H PO SCH (08:25)
[2016-08-24] MEDS: Aspirin Enteric Coated 81 MG Tablet PO SCH (08:25)
[2016-08-24] MEDS: Famotidine 20 MG TABLET PO SCH ×2 (08:25→21:07)
[2016-08-24] MEDS: Cholecalciferol (D-3) 1,000 UNIT TABLET PO SCH (08:25)
[2016-08-24] MEDS: Triamcinolone Acet 0.1% CRM 15 GM TUBE TP SCH ×2 (08:26→21:07)
--- NOTE | 2016-08-24 08:37 | Internal Med Progress Note ---
<Bryce Diaz - Last Filed: 08/24/16 17:28> Date of Encounter: 08/24/16 Time of Encounter: 08:35 - Assessment and plan (1) Cellulitis of left lower extremity Current Visit: No Status: Acute Assessment and plan: improving. continue IV Rocephin. this dose overly some hardware from prior orthopedic surgery. ESR 44 and CRP 153. R/o osteomyelitis, MRI pending. We will start vancomycin IV. (2) Fever Current Visit: Yes Status: Acute Assessment and plan: Resolved. Tmax of 100.6 yesterday Likely from cellulitis versus osteomyelitis Clinically appears to be improving. D/c Rocephin. Switch to Vanc blood cultures pending. Qualifiers: Fever type: unspecified Qualified Code(s): R50.9 - Fever, unspecified (3) Acute on chronic respiratory failure with hypoxemia Current Visit: Yes Status: Acute Assessment and plan: a sleep study could not be conducted to 2 hypoxia of 85% on room air while asleep. ABG shows profound hypoxemia. We will treat her with CPAP while in the hospital and prescribe nighttime home oxygen. (4) Morbid obesity with BMI of 40.0-44.9, adult Current Visit: Yes Status: Chronic Assessment and plan: advise weight loss and diet modification (5) Near syncope Current Visit: Yes Status: Acute Assessment and plan: Etiology is not clear at this time. CT of the head reveals no acute intracranial abnormalities. Transthoracic echocardiogram reveals normal ejection fraction no major valvular abnormalities and no pulmonary hypertension. Ultrasound of the carotids shows nonstenotic plaques bilaterally. Orthostatic vital signs were checked and within normal limits. CTA shows no PE or acute cardiopulmonary processes. Cellulitis/ infectious process is contributing as well. Additionally she is very hypoxemic on overnight ABG. Likely has DANIELA/ OHS. May consider holter monitor upon discharge is etiology still unclear. (6) Hypertension Current Visit: Yes Status: Chronic Assessment and plan: accelerated. Continue metoprolol & PRN Hydralazine. Qualifiers: Hypertension type: essential hypertension Qualified Code(s): I10 - Essential (primary) hypertension (7) Acute kidney injury Current Visit: Yes Status: Acute Assessment and plan: improving. avoid nephrotoxins. (8) Physical deconditioning Current Visit: Yes Status: Acute Assessment and plan: PT/OT consult. Rx for cane. (9) DANIELA (obstructive sleep apnea) Current Visit: Yes Status: Suspected Assessment and plan: strongly suspected. Will need nocturnal O2. Will need Polysomnography as outpatient. (10) Hypochromic microcytic anemia Current Visit: Yes Status: Acute Assessment and plan: Likely this is from IV fluids. Continue to monitor. (11) DVT prophylaxis Current Visit: Yes Status: Acute Assessment and plan: SQ heparin. Patient seen and examined, and plan discussed with and agreed upon with Dr. Willson - Subjective Interval history: Pt resting comfortably in bed on supplemental O2. 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 Patient reports improved redness and the left ankle. Patient is ambulating to bedside commode with assistance. Eyes fevers, chills, leg pain or other complaints at this time. - Constitutional Vitals: Temp Pulse Resp BP Pulse Ox 98.6 F 65 15 138/74 95 08/24/16 07:26 08/24/16 08:09 08/24/16 07:26 08/24/16 07:26 08/24/16 07:26 General appearance: Present: A&O X 3, morbidly obese, pleasant, no acute distress - Head Head exam: Present: atraumatic, normocephalic - Eye Eye exam: Present: PERRL, conjuntiva pink, sclera anicteric Pupils: Present: PERRL - ENT ENT exam: Present: mucous membranes moist, normal oropharynx - Neck Neck exam general surgery: Present: supple, trachea midline. Absent: lymphadenopathy - Respiratory Respiratory exam: Present: CTAB. Absent: accessory muscle use, rales, rhonchi, wheezes - Cardiovascular Cardiovascular exam: Present: RRR, +S1, +S2. Absent: diastolic murmur, gallop, rubs, systolic murmur - GI/Abdominal GI/Abdominal exam: Present: normal bowel sounds, soft, no peritoneal signs. Absent: distended, tenderness - Extremities Exam Extremities exam: Present: warm, radial pulses palpable and symetrical. Absent : calf tenderness, cyanotic, pedal edema Additional comments: Minimal erythema surrounding the left ankle, skin warm, dry, 3+ edema, intact distal pulses bilaterally - Neurological Exam Neurological exam: Present: CN II-XII intact, oriented X3, no focal deficits. Absent: pronater drift, facial droop, speech deficit - Skin Skin exam: Present: dry, intact Additional comments: Left ankle exam as above. Internal Medicine: Result - Labs CBC & Chem 7: 08/24/16 04:03 08/24/16 04:03 Labs: Short CBC 08/24/16 Range/Units 04:03 WBC 6.7 (4.3-11.1) K/mcL Hgb 10.5 L (11.5-15.4) g/dL Hct 33.8 L (35.3-44.9) % Plt Count 117 L (140-400) K/mcL Neutrophils # 4.0 (1.6-8.9) K/mcL BMP 08/24/16 04:03 Sodium 139 Potassium 3.6 Chloride 107 Carbon Dioxide 24 BUN 12 Creatinine 0.87 Glucose 118 H Calcium 8.4 L Liver Function 08/23/16 Range/Units 15:42 Total Bilirubin 0.6 (0.2-1.2) mg/dL Direct Bilirubin 0.3 (0.0-0.5) mg/dL AST 20 (5-34) Units/L ALT 15 (0-55) Units/L Alkaline Phosphatase 66 (38-126) Units/L Albumin 3.4 L (3.5-5.0) g/dL - ABG Interpretation ABG results: ABG ABG pH 7.46 pH Units (7.32-7.45) H 08/23/16 21:39 ABG pCO2 40 mmHg (35-45) 08/23/16 21:39 ABG pO2 85 mmHg (85-104) 08/23/16 21:39 ABG O2 Saturation 97 % (95-98) 08/23/16 21:39 PT/INR, D-dimer PT 11.6 Seconds (9.4-12.1) 08/21/16 12:32 Consult Discharge Plan - Plan Referrals: Marylu Solis CNP [Advanced Practice Nurse] - 08/31/16 10:30 am <Ebenezer Willson - Last Filed: 08/24/16 18:55> Date of Encounter: 08/24/16 - Constitutional Vitals: Temp Pulse Resp BP Pulse Ox 97.9 F 60 16 120/73 90 08/24/16 15:31 08/24/16 15:31 08/24/16 16:21 08/24/16 15:31 08/24/16 16:21 Internal Medicine: Result - Labs CBC & Chem 7: 07/10/17 04:03 08/24/16 04:03 Labs: Short CBC 08/24/16 Range/Units 04:03 WBC 6.7 (4.3-11.1) K/mcL Hgb 10.5 L (11.5-15.4) g/dL Hct 33.8 L (35.3-44.9) % Plt Count 117 L (140-400) K/mcL Neutrophils # 4.0 (1.6-8.9) K/mcL BMP 08/24/16 04:03 Sodium 139 Potassium 3.6 Chloride 107 Carbon Dioxide 24 BUN 12 Creatinine 0.87 Glucose 118 H Calcium 8.4 L - ABG Interpretation ABG results: ABG ABG pH 7.46 pH Units (7.32-7.45) H 08/23/16 21:39 ABG pCO2 40 mmHg (35-45) 08/23/16 21:39 ABG pO2 85 mmHg (85-104) 08/23/16 21:39 ABG O2 Saturation 97 % (95-98) 08/23/16 21:39 PT/INR, D-dimer PT 11.6 Seconds (9.4-12.1) 08/21/16 12:32 - Impressions Impressions Foot MRI 08/24/16 08:53 IMPRESSION: 1. Status post ORIF of the medial malleolus. Metallic susceptibility artifact somewhat limits evaluation of the tibiotalar joint. 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 2. Moderate osteoarthritis of the 2nd through 4th tarsometatarsal articulations. 3. Non specific extensive subcutaneous edema involving the ankle and extending into the dorsal foot. Post contrasted images demonstrate no significant enhancement of the subcutaneous tissues, however, clinical correlation for cellulitis is recommended. No organized fluid collection identified. D/ / Jerry Pierson MD / Jerry Pierson MD Interpreting Provider: Jerry Pierson MD Lower Extremity MRI 08/24/16 08:53 IMPRESSION: 1. No osteomyelitis. 2. No abscess or myositis. 3. Nonspecific superficial soft tissue edema in the distal leg. D/ / 08/24/2016 14:41:57 Avery Camacho MD / earnold Interpreting Provider: Avery Camacho MD - Attending Attestation I examined this patient and my medical decision-making was reviewed with the Resident Physician, Dr Diaz. I agree with the documented findings, disposition and treatment plan as described except to the extent set forth below. Left lower extremity examination revea revealsworsening pitting edema,, persistence of erythema and warmth. Even though llightly improved she has had a low-grade fever,, we will switch antibiotics to vancomycin. she is at high risk for morbidity, mortality and complications due to ttreatment with IV vancomycin requiring level monitoring for toxicity.
[2016-08-24] MEDS: Vancomycin 1,500 MG in D5% in Water 250 ML IVPB SCH (15:31)
[2016-08-24] MEDS ORDERED: Vancomycin 2,000 MG in D5% in Water 250 ML IVPB SCH (18:00)
[2016-08-25] MEDS: Ipratropium/Albuterol Neb 3 ML IH SCH ×2 (03:51→11:03)
[2016-08-25] MEDS: Vancomycin 1,500 MG in D5% in Water 250 ML IVPB SCH (03:57)
[2016-08-25 07:33] LABS: Basophils % 0.2 %; Eosinophils # 0.2 K/mcL (0.0-0.6); Eosinophils % 3.7 %; Hematocrit 34.2 % (35.3-44.9); Hemoglobin 10.4 g/dL (11.5-15.4); Immature Granulocytes % 0.8 % (0-4); Lymphocytes # 1.8 K/mcL (0.6-4.6); Lymphocytes % 35.6 %; Mean Corpuscular HGB Conc 30.4 g/dL (31.6-35.5); Mean Corpuscular Hemoglobin 25.4 pg (28.0-33.3); Mean Corpuscular Volume 83.4 fL (83.0-100.0); Mean Platelet Volume 10.8 fL (9.4-12.4); Monocytes # 0.4 K/mcL (0.0-1.3); Monocytes % 8.2 %; Neutrophils # 2.6 K/mcL (1.6-8.9); Platelet Count 157 K/mcL (140-400); Red Cell Distribution Width 14.4 % (11.5-14.5); Segmented Neutrophils % 51.5 %
[2016-08-25 07:55] LABS: BUN/Creatinine Ratio 18 (6-26); Blood Urea Nitrogen 16 mg/dL (7-20); Calcium 8.3 mg/dL (8.6-10.8); Carbon Dioxide 27 mEq/L (19-29); Chloride 107 mEq/L (98-109); Glucose 140 mg/dL (70-99); Osmolality,Calculated 293 (280-300); Potassium 3.2 mEq/L (3.5-4.5); Sodium 140 mEq/L (136-145); eGFR For African Americans > 60 (> 60); eGFR For Non-African Americans > 60 (> 60)
[2016-08-25] MEDS: Aspirin Enteric Coated 81 MG Tablet PO SCH (09:02)
[2016-08-25] MEDS: Furosemide 20 MG TABLET PO SCH (09:02)
[2016-08-25] MEDS: Metoprolol XL (24 HR) Succ 25 MG TAB.ER.24H PO SCH (09:02)
[2016-08-25] MEDS: Cholecalciferol (D-3) 1,000 UNIT TABLET PO SCH (09:02)
[2016-08-25] MEDS: Famotidine 20 MG TABLET PO SCH (09:02)
[2016-08-25] MEDS: *HR* Heparin 5,000 UNIT/ML VIAL SQ SCH (09:03)
[2016-08-25] MEDS: Triamcinolone Acet 0.1% CRM 15 GM TUBE TP SCH (09:10)
[2016-08-25 11:09] VITALS: BP 124/81
--- NOTE | 2016-08-25 12:14 | Discharge Summary ---
Date of Encounter: 08/25/16 Time of Encounter: 12:11 - Discharge Diagnosis (1) Near syncope Priority: Secondary Status: Chronic (2) Cellulitis of left lower extremity Priority: Primary Status: Acute (3) Acute kidney injury Priority: Primary Status: Acute (4) Hypoxemia Priority: Primary Status: Acute (5) Hypochromic microcytic anemia Priority: Secondary Status: Chronic (6) DANIELA (obstructive sleep apnea) Priority: Secondary Status: Suspected (7) Physical deconditioning Priority: Secondary Status: Chronic (8) Hypertension Priority: Secondary Status: Chronic Qualifiers: Hypertension type: essential hypertension Qualified Code(s): I10 - Essential (primary) hypertension (9) Morbid obesity with BMI of 40.0-44.9, adult Priority: Secondary Status: Chronic - Discharge Medications Prescriptions: Ipratropium/Albuterol Neb [Duoneb] 3 ml IH [id number] #120 inhsol Doxycycline 100 mg PO BID #16 capsule Simvastatin [Zocor] 20 mg PO HS #30 tablet Walker W Wheels [WHEELED WALKER] 1 each .ROUTE AD #1 each Home Medications: Cholecalciferol (Vitamin D3) [Vitamin D3] 2,000 unit PO DAILY 03/23/15 [History] Aspirin [Adult Low Dose Aspirin EC] 81 mg PO DAILY 04/23/15 [History] [place]-3/Dha/Epa/Fish Oil [[place] 3 500 Softgel] 1 cap PO DAILY 01/07/16 [History] Furosemide [Lasix] 20 mg PO DAILY 08/21/16 [History] Metoprolol XL (24 HR) Succ [Toprol Xl] 25 mg PO DAILY 08/21/16 [History] Triamcinolone Acet 0.1% CRM [Kenalog] 1 appl TP BID 08/21/16 [History] Doxycycline 100 mg PO BID #16 capsule 08/25/16 [Rx] Ipratropium/Albuterol Neb [Duoneb] 3 ml IH [id number] #120 inhsol 08/25/16 [Rx] Simvastatin [Zocor] 20 mg PO HS #30 tablet 08/25/16 [Rx] Walker [employer] Wheels [WHEELED WALKER] 1 each .ROUTE AD #1 each 08/25/16 [Rx] Allergies/Adverse Reactions: Allergies No Known Allergies Allergy (Verified 08/17/16 22:25) Procedures/tests Complete & Pending: Procedures Performed prior 72 hours Category Date Time Status MR foot LT wo/w con [MR] Routine MRI 08/24/16 08:53 Completed MR lower leg LT wo/w con [MR] Routine MRI 08/24/16 08:53 Completed Date of admission: 08/21/16 12:45 Primary care physician: Heladio Morrissey MD Consults: 08/24/16 10:51 Consult to Case Management [CONS] Routine Comment: 2L Home oxygen at bedtime via [place], portable tank fo - Patient Status Disposition: Home, Self-Care Condition: Good Functional capacity at discharge: uses cane/walker Overall status at discharge: patient is progressing back to baseline - Discharge Instructions Instructions: Cellulitis (DC) Follow Up With: Marylu Solis CNP [Advanced Practice Nurse] - 08/31/16 10:30 am - Diet and Activity Activity: resume usual activities as tolerated, wear oxygen at night Diet: low fat, low cholesterol, low salt diet Interval History: Patient reports his left lower extremity is much better, swelling has almost resolved and there is no redness. Hospital course: Ms. Smith is a 71 year old female with past medical history of CAD, hypertension , and obesity who presented with the chief complaint of dizziness and generalized weakness. She was admitted with diagnosis of left lower extremity cellulitis and was started on empiric antibiotics with IV And Then Switched to IV Vancomycin.lab cultures were negative. MRI of the foot showed no osteomyelitis, no abscess, no myositis, soft tissue edema distal leg. she improved clinically and she was ambulating better at discharge. Patient was noted to have hypoxemia overnight that was confirmed by ABG. She was prescribed nocturnal oxygen at home. PLAN: doxycycline for 8 more days. follow-up with primary care physician for onychomycosis, weight loss program and rule out DANIELA (sleep study). - Time Spent with Patient Total time spent providing and/or coordinating discharge services: - Constitutional Vitals: Temp Pulse Resp BP Pulse Ox 97.5 F L 60 16 124/81 100 08/25/16 11:08 08/25/16 11:08 08/25/16 11:08 08/25/16 11:08 08/25/16 11:08 General appearance: Present: cooperative, A&O X 3, morbidly obese, pleasant, no acute distress, answers questions appropriately - Neck Neck exam general surgery: Present: supple, trachea midline. Absent: lymphadenopathy - Respiratory Respiratory exam: Present: CTAB - Cardiovascular Cardiovascular exam: Present: RRR - GI/Abdominal GI/Abdominal exam: Present: normal bowel sounds, soft. Absent: distended, tenderness - Extremities Exam Extremities exam: Absent: pedal edema - Back Exam Back exam: Absent: CVA tenderness (L), CVA tenderness (R) - Neurological Exam Neurological exam: Present: alert, oriented X3. Absent: facial droop, speech deficit - Skin Skin exam: Absent: rash
[2016-08-25] MEDS ORDERED: Aminoglycoside Consult 1 EACH MC ONE (12:34)
== END 2016-08-25 12:35 | disposition home or self-care (01) | DRG 682 ==
LOC: EMEROO 08:08 → 3BNU 08:08 → SUATTDRO 12:45
PROVIDERS: ADMIT Registered Nurse; ATTEND Internal Medicine